=== PATIENT | male | born 1930 | race Caucasian/White ===

== ENCOUNTER → 2016-04-30 | Outpatient (CLI) | payer MEDICARE, OTHER ==
[~2016-04-30] VITALS: Ht 172.7 cm; Wt 78.0 kg
[~2016-04-30] MED LIST: LATA0.00 EACHEYE
[2016-04-30 10:00] VITALS: BP 170/89
[2016-04-30 10:30] VITALS: BP 160/88
[2016-04-30 13:01] LABS: INR 1.04 (0.9-1.15); Prothrombin Time 10.7 sec (9.37-12.3)
[2016-04-30 13:09] LABS: BUN/Creatinine Ratio 19.2; Calcium 8.9 mg/dL (8.5-10.1); Potassium 4.2 mmol/L (3.5-5.1)
[2016-04-30 13:25] LABS: Basophils # (auto) 0 uL; Basophils % (auto) 0.5 % (0.0-2.0); Eosinophils # (auto) 0 uL; Eosinophils % (auto) 0.9 % (0.0-7.0); Hematocrit 43.2 % (41.0-53.0); Hemoglobin 14.2 g/dL (13.5-17.5); Lymphocytes # (auto) 0.9 uL; Lymphocytes % (auto) 21.4 % (10.0-50.0); Mean Corpuscular Hgb Conc. 32.9 g/dL (32.0-36.0); Mean Corpuscular Volume 91.1 fL (80.0-100.0); Mean Platelet Volume 8.5 fL (7.4-10.4); Monocytes # (auto) 0.7 uL; Monocytes % (auto) 16.7 % (0.0-12.0); Neutrophils # (auto) 2.7 uL; Neutrophils % (auto) 60.5 % (37.0-80.0); Platelet Count (auto) 221 10^3/uL (140-450); Red Cell Distribution Width 12.8 % (11.6-16.0); White Blood Cell 4.4 10^3/uL (4.4-10.8)
== END | disposition home or self-care (01) ==
LOC: Rad HDHVI 09:59
PROVIDERS: ATTEND Internal Medicine Cardiovascular Disease
DX: I10 Essential (primary) hypertension (principal); R79.1 Abnormal coagulation profile; D64.9 Anemia, unspecified
CPT/HCPCS: 36415; 71020; 80048; 85025; 85610; 85730; 93005; G0463

== ENCOUNTER → 2016-05-01 | Day surgery (SDC) | payer MEDICARE, OTHER ==
[~2016-05-01] VITALS: Ht 1 cm; Wt 0.5 kg
[~2016-05-01] MED LIST changes: +FLUMAZENIL 0.1 MG/ML INJ 10ML MDV IV ONE; +MIDAZOLAM HCL 1MG/1ML-2 ML VIAL IV ONE; +MIDAZOLAM HCL 1MG/1ML-2 ML VIAL ONE; +NALOXONE HCL 0.4 MG/ML VIAL IV ONE; +NALOXONE HCL 0.4 MG/ML VIAL ONE; +fentaNYL CITRATE 100 MCG/2 ML VL IV ONE; +fentaNYL CITRATE 100 MCG/2 ML VL ONE
== END | disposition home or self-care (01) ==
LOC: CATH 10:53
PROVIDERS: ATTEND Internal Medicine Cardiovascular Disease
DX: I35.1 Nonrheumatic aortic (valve) insufficiency (principal); I10 Essential (primary) hypertension; E78.5 Hyperlipidemia, unspecified; I71.9 Aortic aneurysm of unspecified site, without rupture
CPT/HCPCS: 93312; J2250

== ENCOUNTER → 2016-09-08 | Outpatient (CLI) | payer MEDICARE, OTHER ==
[~2016-09-08] MED LIST changes: -FLUMAZENIL 0.1 MG/ML INJ 10ML MDV IV ONE; -MIDAZOLAM HCL 1MG/1ML-2 ML VIAL IV ONE; -MIDAZOLAM HCL 1MG/1ML-2 ML VIAL ONE; -NALOXONE HCL 0.4 MG/ML VIAL IV ONE; -NALOXONE HCL 0.4 MG/ML VIAL ONE; -fentaNYL CITRATE 100 MCG/2 ML VL IV ONE; -fentaNYL CITRATE 100 MCG/2 ML VL ONE
== END | disposition home or self-care (01) ==
LOC: Rad HDHVI 14:04
PROVIDERS: ATTEND Internal Medicine Cardiovascular Disease
DX: G45.9 Transient cerebral ischemic attack, unspecified (principal)
CPT/HCPCS: 70450

== ENCOUNTER → 2017-07-14 | Outpatient (CLI) | payer MEDICARE, OTHER ==
[~2017-07-14] VITALS: Ht 172.7 cm; Wt 74.8 kg
[~2017-07-14] MED LIST changes: -LATA0.00 EACHEYE; +LATA0.0020 EACHEYE
[2017-07-14 12:09] LABS: Basophils # (auto) 0 uL; Basophils % (auto) 0.5 % (0.0-2.0); Eosinophils # (auto) 0.1 uL; Eosinophils % (auto) 1.4 % (0.0-7.0); Hematocrit 41.7 % (41.0-53.0); Hemoglobin 14.2 g/dL (13.5-17.5); Lymphocytes % (auto) 20.1 % (10.0-50.0); Mean Corpuscular Hemoglobin 30.4 pg (28.0-32.0); Mean Corpuscular Volume 89.3 fL (80.0-100.0); Monocytes # (auto) 0.7 uL; Monocytes % (auto) 15.2 % (0.0-12.0); Neutrophils % (auto) 62.8 % (37.0-80.0); Nucleated Red Blood Cells % 0.1 %; Platelet Count (auto) 188 10^3/uL (140-450); Red Blood Cells 4.67 10^6/uL (4.5-5.90); Red Cell Distribution Width 13.3 % (11.8-14.3); Urine Blood TRACE /uL (Negative); Urine Specific Gravity 1.019 (1.001-1.035); White Blood Cell 4.8 10^3/uL (4.4-10.8)
[2017-07-14 12:47] LABS: Free T4 (Free Thyroxine) 1.36 ng/dL (0.89-1.76); Prostate Specific Antigen 0.21 ng/mL (0.0-4.0)
[2017-07-14 12:53] LABS: Albumin 4.1 g/dL (3.4-5.0); Bilirubin, Total 0.6 mg/dL (0.2-1.0); Calcium 9.1 mg/dL (8.5-10.1)
== END | disposition home or self-care (01) ==
LOC: Rad HDHVI 09:48
PROVIDERS: ATTEND Internal Medicine Cardiovascular Disease
DX: E78.5 Hyperlipidemia, unspecified (principal); D64.9 Anemia, unspecified; I10 Essential (primary) hypertension; E11.9 Type 2 diabetes mellitus without complications; E55.9 Vitamin D deficiency, unspecified; E03.8 Other specified hypothyroidism; R53.81 Other malaise; R97.20 Elevated prostate specific antigen [PSA]; D51.9 Vitamin B12 deficiency anemia, unspecified; N39.0 Urinary tract infection, site not specified
CPT/HCPCS: 36415; 78452; 80053; 80061; 81003; 82306; 82607; 83036; 84153; 84403; 84439; 84443; 85025; 93017; 96374; A9500

== ENCOUNTER → 2017-07-30 | Outpatient (CLI) | payer MEDICARE, OTHER ==
[~2017-07-30] MED LIST changes: +IOHEXOL 350 MG/ML 100ML IJ ONE
[2017-07-30 09:35] VITALS: BP 169/82
[2017-07-30 10:20] VITALS: BP 175/78
== END | disposition home or self-care (01) ==
LOC: Rad HDHVI 09:27
PROVIDERS: ATTEND Internal Medicine Cardiovascular Disease
DX: K57.30 Diverticulosis of large intestine without perforation or abscess without bleeding (principal); K44.9 Diaphragmatic hernia without obstruction or gangrene; I70.0 Atherosclerosis of aorta
CPT/HCPCS: 74177; G0463; Q9967

== ENCOUNTER → 2019-04-25 | Outpatient (CLI) | payer MEDICARE, OTHER ==
[~2019-04-25] MED LIST changes: -IOHEXOL 350 MG/ML 100ML IJ ONE
[2019-04-25 12:16] LABS: Hemoglobin 14.6 g/dL (13.5-17.5); Mean Corpuscular Hemoglobin 31.5 pg (28.0-32.0); Mean Corpuscular Volume 92.6 fL (80.0-100.0); Platelet Count (auto) 206 10^3/uL (140-450); Red Blood Cells 4.64 10^6/uL (4.5-5.90); Red Cell Distribution Width 13.2 % (11.8-14.3); White Blood Cell 5.2 10^3/uL (4.4-10.8)
[2019-04-25 12:18] LABS: Urine Blood Negative /uL (Negative); Urine Specific Gravity 1.018 (1.001-1.035)
[2019-04-25 12:32] LABS: Albumin 4.5 g/dL (3.4-5.0); Potassium 3.8 mmol/L (3.5-5.1)
[2019-04-25 12:34] LABS: Band Neutrophils % (manual) 0; Basophils % (manual) 0 (0.0-2.0); Blast Cells 0; Eosinophils % (manual) 0 (0-7); Metamyelocytes % 0; Myelocytes % 0; Promyelocytes % 0; Reactive Lymphocytes 0
[2019-04-25 12:40] LABS: Bilirubin, Total 1.1 mg/dL (0.2-1.0); Calcium 9.4 mg/dL (8.5-10.1); Total Protein 8.6 g/dL (6.4-8.2)
[2019-04-25 13:12] LABS: Lymphocytes % (manual) 35 (10.0-50.0); Monocytes % (manual) 3 (0-12)
[2019-04-25 13:50] LABS: Free T4 (Free Thyroxine) 1.14 ng/dL (0.89-1.76)
[2019-04-25 13:51] LABS: Prostate Specific Antigen 0.28 ng/mL (0.0-4.0)
== END | disposition home or self-care (01) ==
LOC: LAB 09:01
PROVIDERS: ATTEND Internal Medicine Cardiovascular Disease
DX: C61 Malignant neoplasm of prostate (principal); E03.9 Hypothyroidism, unspecified; K90.9 Intestinal malabsorption, unspecified; E29.1 Testicular hypofunction; N39.0 Urinary tract infection, site not specified; D51.9 Vitamin B12 deficiency anemia, unspecified; Z79.899 Other long term (current) drug therapy
CPT/HCPCS: 36415; 80053; 80061; 81003; 82306; 82607; 83036; 84153; 84403; 84439; 84443; 85007; 85027

== ENCOUNTER 2020-08-18 10:38 | Inpatient (IN) | payer MEDICARE, OTHER ==
[~2020-08-18] VITALS: Ht 172.7 cm; Wt 74.0 kg
[2020-08-18] MEDS ORDERED: dilTIAZem 25 MG/5 ML VIAL IV ONE (11:00)
[2020-08-18] MEDS ORDERED: SODIUM CHLORIDE 0.9% 500 ML IV ONE ×2 (11:45→18:30)
[2020-08-18 11:46] LABS: Basophils # (auto) 0.2 10 ^3/uL (0-0.2); Basophils % (auto) 1.4 % (0.0-2.0); Eosinophils # (auto) 0 10 ^3/uL (0-0.8); Hematocrit 46.4 % (41.0-53.0); Hemoglobin 15.4 g/dL (13.5-17.5); Lymphocytes # (auto) 0.3 10 ^3/uL (0.4-5.4); Lymphocytes % (auto) 2.3 % (10.0-50.0); Mean Corpuscular Hemoglobin 30.2 pg (28.0-32.0); Mean Corpuscular Hgb Conc. 33.3 g/dL (32.0-36.0); Mean Corpuscular Volume 90.6 fL (80.0-100.0); Monocytes # (auto) 1.8 10 ^3/uL (0-1.3); Monocytes % (auto) 12.4 % (0.0-12.0); Neutrophils % (auto) 83.9 % (37.0-80.0); Red Blood Cells 5.12 10^6/uL (4.5-5.90); Red Cell Distribution Width 13.5 % (11.8-14.3); White Blood Cell 14.3 10^3/uL (4.4-10.8)
[2020-08-18 11:56] LABS: Albumin 3.1 g/dL (3.4-5.0); Calcium 8.9 mg/dL (8.5-10.1); Potassium 4.5 mmol/L (3.5-5.1)
[2020-08-18 12:00] LABS: INR 1.15 (0.9-1.15)
[2020-08-18 12:22] LABS: BUN/Creatinine Ratio 38.6; Bilirubin, Total 1.5 mg/dL (0.2-1.0); Total Protein 7.6 g/dL (6.4-8.2)
[2020-08-18 13:28] LABS: Lactic Acid w/Reflex 3.8 mmol/L (0.4-2.0)
[2020-08-18 16:04] LABS: Lactic Acid w/Reflex 3.1 mmol/L (0.4-2.0)
[2020-08-18] MEDS ORDERED: LATA0.0019 EACHEYE (16:12)
[2020-08-18] MEDS ORDERED: TIMO0.5S32 EACHEYE (16:12)
[2020-08-18] MEDS: cefTRIAXone 1GM/50ML D5W 50 ML IV SCH ×2 (18:33→18:34)
[2020-08-18 20:12] LABS: Urine Bacteria FEW /hpf (None Seen); Urine Blood 3+ /uL (Negative); Urine Hyaline Cast MANY /lpf (0 - 2); Urine Mucus FEW (None Seen); Urine Specific Gravity 1.025 (1.001-1.035); Urine WBC 9 /hpf (0 - 3)
[2020-08-18 22:00] VITALS: BP 135/69
[2020-08-18] MEDS: TIMOLOL MAL 0.5% OPTH(EYE) SOL 5ML EACHEYE SCH (22:00)
[2020-08-19 05:16] VITALS: BP 131/63
[2020-08-19 08:14] LABS: Basophils # (auto) 0 10 ^3/uL (0-0.2); Basophils % (auto) 0.1 % (0.0-2.0); Eosinophils # (auto) 0 10 ^3/uL (0-0.8); Hematocrit 39.9 % (41.0-53.0); Hemoglobin 13.3 g/dL (13.5-17.5); Mean Corpuscular Hemoglobin 29.8 pg (28.0-32.0); Mean Corpuscular Hgb Conc. 33.5 g/dL (32.0-36.0); Mean Corpuscular Volume 89.1 fL (80.0-100.0); Neutrophils # (auto) 15.9 10 ^3/uL (1.6-8.6); Neutrophils % (auto) 76.7 % (37.0-80.0); Red Blood Cells 4.47 10^6/uL (4.5-5.90); Red Cell Distribution Width 13.7 % (11.8-14.3); White Blood Cell 20.8 10^3/uL (4.4-10.8)
[2020-08-19 08:19] LABS: Lymphocytes % (auto) 6.7 % (10.0-50.0)
[2020-08-19 08:20] LABS: Albumin 2.6 g/dL (3.4-5.0); Calcium 8.4 mg/dL (8.5-10.1); Lymphocytes # (auto) 1.1 10 ^3/uL (0.4-5.4); Magnesium 2.9 mg/dL (1.6-2.6); Monocytes # (auto) 3.7 10 ^3/uL (0-1.3); Monocytes % (auto) 16.5 % (0.0-12.0); Potassium 4.1 mmol/L (3.5-5.1)
[2020-08-19 08:24] LABS: BUN/Creatinine Ratio 52.1; Bilirubin, Total 0.9 mg/dL (0.2-1.0); Total Protein 6.7 g/dL (6.4-8.2)
[2020-08-19 08:27] VITALS: BP 120/72
[2020-08-19] MEDS: cefTRIAXone 1GM/50ML D5W 50 ML IV SCH (10:32)
[2020-08-19] MEDS: TIMOLOL MAL 0.5% OPTH(EYE) SOL 5ML EACHEYE SCH ×2 (12:37→21:33)
[2020-08-19 12:55] VITALS: BP 121/65
[2020-08-19] MEDS: FOLIC ACID 1 MG, MULTIPLE VITAMIN 10 ML, THIAMINE INJ 100 MG in SODIUM CHLORIDE 0.9% 1,... INJ SCH (13:16)
[2020-08-19] MEDS: KETOROLAC TROMETH 30 MG/ML 1ML VIAL IV PRN ×2 (13:17→21:33)
[2020-08-19 17:02] VITALS: BP 110/59
[2020-08-19 22:00] VITALS: BP 108/60
[2020-08-20 05:00] VITALS: BP 108/60
[2020-08-20] MEDS: cefTRIAXone 1GM/50ML D5W 50 ML IV SCH (08:25)
[2020-08-20] MEDS: KETOROLAC TROMETH 30 MG/ML 1ML VIAL IV PRN ×2 (08:38→18:00)
[2020-08-20 09:00] VITALS: BP 111/59
[2020-08-20] MEDS: TIMOLOL MAL 0.5% OPTH(EYE) SOL 5ML EACHEYE SCH ×2 (09:40→22:12)
[2020-08-20 13:00] VITALS: BP 109/59
[2020-08-20] MEDS: FOLIC ACID 1 MG, MULTIPLE VITAMIN 10 ML, THIAMINE INJ 100 MG in SODIUM CHLORIDE 0.9% 1,... INJ SCH (15:41)
[2020-08-20] MEDS ORDERED: METOCLOPRAMIDE HCL 5MG/ml INJ 2ml VIAL IV PRN (16:15)
[2020-08-20 17:00] VITALS: BP 111/56
[2020-08-20] MEDS: PIPERACILLIN-TAZOB 3.375GM 100 ML IV SCH (17:46)
[2020-08-20 22:00] VITALS: BP 124/62
[2020-08-21] MEDS: PIPERACILLIN-TAZOB 3.375GM 100 ML IV SCH ×4 (00:33→18:34)
[2020-08-21] MEDS: KETOROLAC TROMETH 30 MG/ML 1ML VIAL IV PRN ×2 (00:41→18:34)
[2020-08-21 05:00] VITALS: BP 124/63
[2020-08-21 09:00] VITALS: BP 119/60
[2020-08-21] MEDS: TIMOLOL MAL 0.5% OPTH(EYE) SOL 5ML EACHEYE SCH ×2 (12:42→21:58)
[2020-08-21] MEDS: FOLIC ACID 1 MG, MULTIPLE VITAMIN 10 ML, THIAMINE INJ 100 MG in SODIUM CHLORIDE 0.9% 1,... INJ SCH (12:42)
[2020-08-21 13:00] VITALS: BP 137/67
[2020-08-21 16:26] LABS: Hematocrit 31.2 % (41.0-53.0); Hemoglobin 10.8 g/dL (13.5-17.5); Mean Corpuscular Hemoglobin 30.3 pg (28.0-32.0); Mean Corpuscular Hgb Conc. 34.6 g/dL (32.0-36.0); Mean Corpuscular Volume 87.6 fL (80.0-100.0); Red Blood Cells 3.56 10^6/uL (4.5-5.90); Red Cell Distribution Width 13.5 % (11.8-14.3); White Blood Cell 12.5 10^3/uL (4.4-10.8)
[2020-08-21 16:31] LABS: Basophils % (manual) 0 (0.0-2.0); Blast Cells 0; Eosinophils % (manual) 0 (0-7); Metamyelocytes % 0; Myelocytes % 0; Promyelocytes % 0; Reactive Lymphocytes 0
[2020-08-21 16:45] LABS: Albumin 1.8 g/dL (3.4-5.0); Calcium 7.8 mg/dL (8.5-10.1); Potassium 4.4 mmol/L (3.5-5.1)
[2020-08-21 16:48] LABS: BUN/Creatinine Ratio 35.6; Bilirubin, Total 0.5 mg/dL (0.2-1.0); Total Protein 5.8 g/dL (6.4-8.2)
[2020-08-21 17:00] VITALS: BP 136/63
[2020-08-21 17:13] LABS: Band Neutrophils % (manual) 5; Lymphocytes % (manual) 5 (10.0-50.0); Monocytes % (manual) 14 (0-12)
[2020-08-22] MEDS: PIPERACILLIN-TAZOB 3.375GM 100 ML IV SCH ×4 (00:43→19:57)
[2020-08-22] MEDS: KETOROLAC TROMETH 30 MG/ML 1ML VIAL IV PRN ×3 (00:44→21:16)
[2020-08-22 05:00] VITALS: BP 156/74
[2020-08-22 09:00] VITALS: BP 139/60
[2020-08-22] MEDS: FOLIC ACID 1 MG, MULTIPLE VITAMIN 10 ML, THIAMINE INJ 100 MG in SODIUM CHLORIDE 0.9% 1,... INJ SCH (12:31)
[2020-08-22] MEDS: TIMOLOL MAL 0.5% OPTH(EYE) SOL 5ML EACHEYE SCH ×2 (12:32→21:17)
[2020-08-22 13:00] VITALS: BP 130/68
[2020-08-22 17:00] VITALS: BP 145/69
[2020-08-22 22:00] VITALS: BP 129/73
[2020-08-23] MEDS: PIPERACILLIN-TAZOB 3.375GM 100 ML IV SCH ×4 (05:45→18:35)
[2020-08-23 05:51] VITALS: BP 141/66
[2020-08-23 09:00] VITALS: BP 158/77
[2020-08-23] MEDS: KETOROLAC TROMETH 30 MG/ML 1ML VIAL IV PRN (10:46)
[2020-08-23] MEDS: TIMOLOL MAL 0.5% OPTH(EYE) SOL 5ML EACHEYE SCH ×2 (10:46→22:42)
[2020-08-23] MEDS: FOLIC ACID 1 MG, MULTIPLE VITAMIN 10 ML, THIAMINE INJ 100 MG in SODIUM CHLORIDE 0.9% 1,... INJ SCH (12:12)
[2020-08-23 13:00] VITALS: BP 118/66
[2020-08-23 14:05] LABS: Hematocrit 30.6 % (41.0-53.0); White Blood Cell 11.4 10^3/uL (4.4-10.8)
[2020-08-23 14:12] LABS: Hemoglobin 10.6 g/dL (13.5-17.5); Mean Corpuscular Hemoglobin 30.3 pg (28.0-32.0); Mean Corpuscular Hgb Conc. 34.6 g/dL (32.0-36.0); Mean Corpuscular Volume 87.6 fL (80.0-100.0); Red Cell Distribution Width 13.8 % (11.8-14.3)
[2020-08-23 14:15] LABS: Basophils % (manual) 0 (0.0-2.0); Blast Cells 0; Promyelocytes % 0; Reactive Lymphocytes 0
[2020-08-23 14:21] LABS: BUN/Creatinine Ratio 23.9; Potassium 4.4 mmol/L (3.5-5.1)
[2020-08-23 14:28] LABS: Band Neutrophils % (manual) 5; Eosinophils % (manual) 2 (0-7); Lymphocytes % (manual) 15 (10.0-50.0); Metamyelocytes % 1; Monocytes % (manual) 6 (0-12); Myelocytes % 3
[2020-08-23 17:00] VITALS: BP 139/72
[2020-08-23 22:00] VITALS: BP 158/74
[2020-08-23] MEDS: HYDROcodone-ACET 10/325MG TAB PO PRN (22:42)
[2020-08-24 00:12] VITALS: BP 135/64
[2020-08-24] MEDS: PIPERACILLIN-TAZOB 3.375GM 100 ML IV SCH ×4 (00:20→17:41)
[2020-08-24 05:00] VITALS: BP 142/68
[2020-08-24 09:00] VITALS: BP 134/60
[2020-08-24] MEDS: TIMOLOL MAL 0.5% OPTH(EYE) SOL 5ML EACHEYE SCH ×2 (09:09→22:20)
[2020-08-24] MEDS: CLOPIDOGREL BISULFATE 75 MG TAB PO SCH (09:10)
[2020-08-24] MEDS: BENAZEPRIL HCL 10 MG TAB PO SCH (09:10)
[2020-08-24 13:00] VITALS: BP 116/54
[2020-08-24 17:00] VITALS: BP 120/54
[2020-08-24] MEDS: HYDROcodone-ACET 10/325MG TAB PO PRN (20:54)
[2020-08-24 22:00] VITALS: BP 109/50
[2020-08-25] MEDS: PIPERACILLIN-TAZOB 3.375GM 100 ML IV SCH ×4 (00:39→17:40)
[2020-08-25 05:00] VITALS: BP 119/58
[2020-08-25] MEDS: TIMOLOL MAL 0.5% OPTH(EYE) SOL 5ML EACHEYE SCH ×2 (08:44→21:29)
[2020-08-25] MEDS: CLOPIDOGREL BISULFATE 75 MG TAB PO SCH (08:45)
[2020-08-25] MEDS: BENAZEPRIL HCL 10 MG TAB PO SCH (08:45)
[2020-08-25] MEDS: HYDROcodone-ACET 10/325MG TAB PO PRN (08:52)
[2020-08-25 09:00] VITALS: BP 127/67
[2020-08-25 13:00] VITALS: BP 114/54
[2020-08-25 17:00] VITALS: BP 110/54
[2020-08-25] MEDS ORDERED: LORazepam 2MG/ML-1ML VIAL IV PRN (21:45)
[2020-08-25 22:00] VITALS: BP 121/58
[2020-08-26] MEDS: PIPERACILLIN-TAZOB 3.375GM 100 ML IV SCH ×4 (00:33→18:07)
[2020-08-26] MEDS: HYDROcodone-ACET 10/325MG TAB PO PRN ×3 (00:34→22:00)
[2020-08-26 05:00] VITALS: BP 117/57
[2020-08-26 08:00] VITALS: BP 123/56
[2020-08-26 08:34] VITALS: BP 123/56
[2020-08-26] MEDS: BENAZEPRIL HCL 10 MG TAB PO SCH ×2 (10:00→10:45)
[2020-08-26] MEDS: TIMOLOL MAL 0.5% OPTH(EYE) SOL 5ML EACHEYE SCH ×2 (10:45→21:59)
[2020-08-26] MEDS: CLOPIDOGREL BISULFATE 75 MG TAB PO SCH (10:47)
[2020-08-26 12:39] VITALS: BP 109/64
[2020-08-26 16:47] VITALS: BP 122/67
[2020-08-26 22:00] VITALS: BP 129/62
[2020-08-27] MEDS: PIPERACILLIN-TAZOB 3.375GM 100 ML IV SCH ×4 (00:04→17:06)
[2020-08-27 05:00] VITALS: BP 128/62
[2020-08-27 08:00] VITALS: BP 109/52
[2020-08-27 09:00] VITALS: BP 128/63
[2020-08-27 09:18] LABS: Folate (Folic Acid) 10.5 ng/mL (5.38-24)
[2020-08-27] MEDS: TIMOLOL MAL 0.5% OPTH(EYE) SOL 5ML EACHEYE SCH ×2 (10:11→22:24)
[2020-08-27] MEDS: BENAZEPRIL HCL 10 MG TAB PO SCH (10:11)
[2020-08-27] MEDS: CLOPIDOGREL BISULFATE 75 MG TAB PO SCH (10:11)
[2020-08-27] MEDS: HYDROcodone-ACET 10/325MG TAB PO PRN ×2 (10:12→22:24)
[2020-08-27 13:00] VITALS: BP 109/52
[2020-08-27 17:00] VITALS: BP 109/53
[2020-08-27 22:00] VITALS: BP 132/67
[2020-08-28] MEDS: PIPERACILLIN-TAZOB 3.375GM 100 ML IV SCH ×4 (00:50→17:19)
[2020-08-28 05:00] VITALS: BP 136/68
[2020-08-28 05:40] LABS: Basophils # (auto) 0.1 10 ^3/uL (0-0.2); Basophils % (auto) 0.8 % (0.0-2.0); Eosinophils # (auto) 0.1 10 ^3/uL (0-0.8); Hematocrit 28.2 % (41.0-53.0); Hemoglobin 9.6 g/dL (13.5-17.5); Lymphocytes # (auto) 1.2 10 ^3/uL (0.4-5.4); Mean Corpuscular Hgb Conc. 34.2 g/dL (32.0-36.0); Mean Corpuscular Volume 87.6 fL (80.0-100.0); Monocytes # (auto) 1.6 10 ^3/uL (0-1.3); Monocytes % (auto) 14.9 % (0.0-12.0); Neutrophils # (auto) 7.7 10 ^3/uL (1.6-8.6); Neutrophils % (auto) 72.3 % (37.0-80.0); Red Blood Cells 3.22 10^6/uL (4.5-5.90); White Blood Cell 10.7 10^3/uL (4.4-10.8)
[2020-08-28 05:47] LABS: INR 1.11 (0.9-1.15); Partial Thromboplastin Time 26.8 sec (23.0-31.2)
[2020-08-28 05:50] LABS: Calcium 8.3 mg/dL (8.5-10.1); Potassium 4.1 mmol/L (3.5-5.1)
[2020-08-28 05:52] LABS: BUN/Creatinine Ratio 30.3
[2020-08-28 09:00] VITALS: BP 124/59
[2020-08-28] MEDS: CLOPIDOGREL BISULFATE 75 MG TAB PO SCH (10:54)
[2020-08-28] MEDS: BENAZEPRIL HCL 10 MG TAB PO SCH (10:55)
[2020-08-28] MEDS: TIMOLOL MAL 0.5% OPTH(EYE) SOL 5ML EACHEYE SCH ×2 (10:56→21:21)
[2020-08-28] MEDS: HYDROcodone-ACET 10/325MG TAB PO PRN (11:05)
[2020-08-28] MEDS ORDERED: LIDOCAINE 2%HCL (LOCAL ANESTH.) INJ 20ML MDV ONE (12:34)
[2020-08-28] MEDS ORDERED: IOHEXOL 350 MG/ML 100ML IJ ONE (12:34)
[2020-08-28] MEDS ORDERED: SODIUM CHL 0.9% 0 ML ONE (12:50)
[2020-08-28] MEDS ORDERED: MIDAZOLAM HCL 2MG/2ML 2ml VIAL (1mg/ml) ONE (12:50)
[2020-08-28] MEDS ORDERED: fentaNYL CITRATE 100 MCG/2 ML VL ONE (12:50)
[2020-08-28] MEDS ORDERED: ANGIOMAX 250 MG VIAL IV ONE (12:50)
[2020-08-28 13:00] VITALS: BP 105/50
[2020-08-28 17:00] VITALS: BP 115/51
[2020-08-28 21:56] VITALS: BP 116/57
[2020-08-29] MEDS: PIPERACILLIN-TAZOB 3.375GM 100 ML IV SCH ×4 (00:17→17:10)
[2020-08-29] MEDS: HYDROcodone-ACET 10/325MG TAB PO PRN ×2 (01:55→22:53)
[2020-08-29 06:07] VITALS: BP 132/61
[2020-08-29 09:00] VITALS: BP 129/58
[2020-08-29] MEDS: TIMOLOL MAL 0.5% OPTH(EYE) SOL 5ML EACHEYE SCH ×2 (10:23→22:00)
[2020-08-29] MEDS: BENAZEPRIL HCL 10 MG TAB PO SCH (10:24)
[2020-08-29] MEDS: CLOPIDOGREL BISULFATE 75 MG TAB PO SCH (10:24)
[2020-08-29 13:00] VITALS: BP 119/50
[2020-08-29 16:30] VITALS: BP 110/46
[2020-08-29 21:56] VITALS: BP 91/54
[2020-08-30 05:27] VITALS: BP 99/68
[2020-08-30] MEDS: PIPERACILLIN-TAZOB 3.375GM 100 ML IV SCH ×4 (06:00→17:51)
[2020-08-30 09:00] VITALS: BP 123/64
[2020-08-30] MEDS: BENAZEPRIL HCL 10 MG TAB PO SCH (10:00)
[2020-08-30] MEDS: CLOPIDOGREL BISULFATE 75 MG TAB PO SCH (10:06)
[2020-08-30] MEDS: TIMOLOL MAL 0.5% OPTH(EYE) SOL 5ML EACHEYE SCH ×2 (10:06→22:15)
[2020-08-30 13:00] VITALS: BP 118/61
[2020-08-30 17:00] VITALS: BP 117/50
[2020-08-30 22:00] VITALS: BP 121/57
[2020-08-31] MEDS: PIPERACILLIN-TAZOB 3.375GM 100 ML IV SCH ×4 (00:05→18:19)
[2020-08-31 05:00] VITALS: BP 118/58
[2020-08-31 09:00] VITALS: BP_SYST 108; BP_SYST 18; BP_DIAS 51
[2020-08-31] MEDS: BENAZEPRIL HCL 10 MG TAB PO SCH (09:55)
[2020-08-31] MEDS: CLOPIDOGREL BISULFATE 75 MG TAB PO SCH (09:55)
[2020-08-31] MEDS: TIMOLOL MAL 0.5% OPTH(EYE) SOL 5ML EACHEYE SCH ×2 (09:55→21:52)
[2020-08-31 13:00] VITALS: BP 113/52
[2020-08-31 17:00] VITALS: BP 108/56
[2020-08-31 21:37] VITALS: BP 105/48
[2020-09-01 05:00] VITALS: BP 110/54
[2020-09-01] MEDS: PIPERACILLIN-TAZOB 3.375GM 100 ML IV SCH ×4 (05:38→17:53)
[2020-09-01 08:00] VITALS: BP 108/51
[2020-09-01 08:39] VITALS: BP 108/50
[2020-09-01] MEDS: CLOPIDOGREL BISULFATE 75 MG TAB PO SCH (09:37)
[2020-09-01] MEDS: TIMOLOL MAL 0.5% OPTH(EYE) SOL 5ML EACHEYE SCH ×2 (09:37→22:00)
[2020-09-01] MEDS: BENAZEPRIL HCL 10 MG TAB PO SCH (09:39)
[2020-09-01 12:48] VITALS: BP 105/48
[2020-09-01 16:18] LABS: Hematocrit 21.2 % (41.0-53.0); Hemoglobin 7.4 g/dL (13.5-17.5); Mean Corpuscular Hemoglobin 29.7 pg (28.0-32.0); Mean Corpuscular Hgb Conc. 34.7 g/dL (32.0-36.0)
[2020-09-01 16:19] LABS: Mean Corpuscular Volume 85.6 fL (80.0-100.0); Red Blood Cells 2.48 10^6/uL (4.5-5.90); Red Cell Distribution Width 14.2 % (11.8-14.3)
[2020-09-01 16:29] LABS: Band Neutrophils % (manual) 0; Basophils % (manual) 0 (0.0-2.0); Blast Cells 0; Metamyelocytes % 0; Myelocytes % 0; Promyelocytes % 0; Reactive Lymphocytes 0
[2020-09-01] MEDS ORDERED: EPOETIN ALFA-EPBX 10,000 UNIT/1ML VIAL SC ONE (16:30)
[2020-09-01 16:34] LABS: Albumin 2.2 g/dL (3.4-5.0); BUN/Creatinine Ratio 33.8; Calcium 7.9 mg/dL (8.5-10.1); Potassium 4.6 mmol/L (3.5-5.1)
[2020-09-01 16:37] LABS: Bilirubin, Total 0.4 mg/dL (0.2-1.0); Total Protein 6.6 g/dL (6.4-8.2)
[2020-09-01 17:05] VITALS: BP 105/50
[2020-09-01 17:42] LABS: Eosinophils % (manual) 1 (0-7); Lymphocytes % (manual) 11 (10.0-50.0); Monocytes % (manual) 13 (0-12)
[2020-09-01 22:00] VITALS: BP 92/47
[2020-09-02] VITALS (8 sets, daily range): BP systolic 101–112; BP diastolic 48–55
[2020-09-02] MEDS: PIPERACILLIN-TAZOB 3.375GM 100 ML IV SCH ×4 (00:05→17:16)
[2020-09-02 07:35] LABS: Basophils # (auto) 0.1 10 ^3/uL (0-0.2); Eosinophils # (auto) 0.1 10 ^3/uL (0-0.8); Monocytes # (auto) 1.5 10 ^3/uL (0-1.3); Neutrophils # (auto) 6.1 10 ^3/uL (1.6-8.6)
[2020-09-02 07:37] LABS: Basophils % (auto) 1.3 % (0.0-2.0); Eosinophils % (auto) 1.1 % (0.0-7.0); Hematocrit 20.7 % (41.0-53.0); Lymphocytes # (auto) 0.9 10 ^3/uL (0.4-5.4); Mean Corpuscular Hemoglobin 29.6 pg (28.0-32.0); Mean Corpuscular Volume 87.1 fL (80.0-100.0); Monocytes % (auto) 17.5 % (0.0-12.0); Neutrophils % (auto) 70.1 % (37.0-80.0); Red Blood Cells 2.38 10^6/uL (4.5-5.90); Red Cell Distribution Width 14.3 % (11.8-14.3); White Blood Cell 8.7 10^3/uL (4.4-10.8)
[2020-09-02] MEDS: CLOPIDOGREL BISULFATE 75 MG TAB PO SCH (09:19)
[2020-09-02] MEDS: TIMOLOL MAL 0.5% OPTH(EYE) SOL 5ML EACHEYE SCH ×2 (09:26→22:13)
[2020-09-02] MEDS: BENAZEPRIL HCL 10 MG TAB PO SCH (09:26)
[2020-09-02] MEDS: HYDROcodone-ACET 10/325MG TAB PO PRN (09:54)
[2020-09-02] MEDS ORDERED: PANTOPRAZOLE 40 MG TAB PO SCH (10:00)
[2020-09-02] MEDS: SUCRALFATE 1 GM/10 ML ORAL SUSP PO SCH ×2 (17:15→22:13)
[2020-09-02] MEDS: Ensure HIGH Protein Chocolate 8oz Bottle PO SCH (19:00)
[2020-09-02] MEDS: PANTOPRAZOLE 40 MG TAB PO SCH (22:13)
[2020-09-03] VITALS (14 sets, daily range): BP systolic 94–108; BP diastolic 46–81
[2020-09-03 05:48] LABS: Red Blood Cells 2.17 10^6/uL (4.5-5.90)
[2020-09-03 05:53] LABS: Hematocrit 19.1 % (41.0-53.0); Mean Corpuscular Hemoglobin 30.5 pg (28.0-32.0); Mean Corpuscular Hgb Conc. 34.7 g/dL (32.0-36.0); Mean Corpuscular Volume 87.8 fL (80.0-100.0); Red Cell Distribution Width 14.9 % (11.8-14.3)
[2020-09-03] MEDS: PIPERACILLIN-TAZOB 3.375GM 100 ML IV SCH ×4 (06:00→18:10)
[2020-09-03 06:18] LABS: Hemoglobin 6.6 g/dL (13.5-17.5)
[2020-09-03 06:20] LABS: Basophils % (manual) 0 (0.0-2.0); Blast Cells 0; Metamyelocytes % 0; Myelocytes % 0; Promyelocytes % 0; Reactive Lymphocytes 0
[2020-09-03] MEDS: SUCRALFATE 1 GM/10 ML ORAL SUSP PO SCH ×2 (07:00→12:46)
[2020-09-03 07:09] LABS: Band Neutrophils % (manual) 2; Eosinophils % (manual) 2 (0-7); Lymphocytes % (manual) 7 (10.0-50.0); Monocytes % (manual) 6 (0-12)
[2020-09-03] MEDS: Ensure HIGH Protein Chocolate 8oz Bottle PO SCH ×3 (08:39→18:10)
[2020-09-03] MEDS: BENAZEPRIL HCL 10 MG TAB PO SCH (09:06)
[2020-09-03] MEDS: PANTOPRAZOLE 40 MG TAB PO SCH ×2 (09:25→22:13)
[2020-09-03] MEDS: TIMOLOL MAL 0.5% OPTH(EYE) SOL 5ML EACHEYE SCH ×2 (09:25→22:13)
[2020-09-03 21:12] LABS: Hematocrit 21.4 % (41.0-53.0); Hemoglobin 7.6 g/dL (13.5-17.5)
[2020-09-04] MEDS: PIPERACILLIN-TAZOB 3.375GM 100 ML IV SCH ×4 (01:16→19:09)
[2020-09-04 05:00] VITALS: BP 102/52
[2020-09-04 06:45] LABS: Hematocrit 22.9 % (41.0-53.0); White Blood Cell 8.7 10^3/uL (4.4-10.8)
[2020-09-04 06:50] LABS: Mean Corpuscular Hemoglobin 31.2 pg (28.0-32.0); Red Blood Cells 2.58 10^6/uL (4.5-5.90); Red Cell Distribution Width 14.8 % (11.8-14.3)
[2020-09-04 06:59] LABS: Basophils % (manual) 0 (0.0-2.0); Blast Cells 0; Metamyelocytes % 0; Promyelocytes % 0; Reactive Lymphocytes 0
[2020-09-04 07:50] LABS: Band Neutrophils % (manual) 2; Eosinophils % (manual) 1 (0-7); Lymphocytes % (manual) 8 (10.0-50.0); Monocytes % (manual) 9 (0-12); Myelocytes % 1
[2020-09-04] MEDS: Ensure HIGH Protein Chocolate 8oz Bottle PO SCH ×3 (08:00→19:09)
[2020-09-04 08:56] VITALS: BP 125/53
[2020-09-04] MEDS: TIMOLOL MAL 0.5% OPTH(EYE) SOL 5ML EACHEYE SCH ×2 (09:37→21:43)
[2020-09-04] MEDS: PANTOPRAZOLE 40 MG TAB PO SCH ×2 (09:37→21:42)
[2020-09-04] MEDS: BENAZEPRIL HCL 10 MG TAB PO SCH (09:37)
[2020-09-04 13:00] VITALS: BP 105/52
[2020-09-04 17:00] VITALS: BP 109/53
[2020-09-04] MEDS ORDERED: EPOETIN ALFA-EPBX 10,000 UNIT/1ML VIAL SC ONE (21:00)
[2020-09-04 21:56] VITALS: BP 122/56
[2020-09-05] MEDS: PIPERACILLIN-TAZOB 3.375GM 100 ML IV SCH ×4 (00:07→20:14)
[2020-09-05 06:35] VITALS: BP 147/65
[2020-09-05 07:32] LABS: Hemoglobin 8.3 g/dL (13.5-17.5); Mean Corpuscular Volume 90.5 fL (80.0-100.0); Red Cell Distribution Width 15.6 % (11.8-14.3)
[2020-09-05 07:34] LABS: Hematocrit 23.8 % (41.0-53.0); Mean Corpuscular Hemoglobin 31.4 pg (28.0-32.0); Mean Corpuscular Hgb Conc. 34.7 g/dL (32.0-36.0); Red Blood Cells 2.63 10^6/uL (4.5-5.90); White Blood Cell 8.1 10^3/uL (4.4-10.8)
[2020-09-05 07:36] LABS: Basophils % (manual) 0 (0.0-2.0); Blast Cells 0; Promyelocytes % 0; Reactive Lymphocytes 0
[2020-09-05 07:53] LABS: BUN/Creatinine Ratio 23.1; Calcium 8.3 mg/dL (8.5-10.1); Potassium 4.1 mmol/L (3.5-5.1)
[2020-09-05] MEDS: Ensure HIGH Protein Chocolate 8oz Bottle PO SCH ×3 (08:00→17:16)
[2020-09-05 08:30] VITALS: BP 129/55
[2020-09-05 08:32] LABS: Band Neutrophils % (manual) 11; Eosinophils % (manual) 3 (0-7); Lymphocytes % (manual) 9 (10.0-50.0); Metamyelocytes % 4; Monocytes % (manual) 11 (0-12); Myelocytes % 1
[2020-09-05] MEDS ORDERED: diphenhdrAMINE HCL 50 MG/1 ML VL ONE (08:42)
[2020-09-05] MEDS ORDERED: SODIUM CHLORIDE LOCK 10 ML ONE (08:42)
[2020-09-05] MEDS ORDERED: fentaNYL CITRATE 100 MCG/2 ML VL ONE (08:42)
[2020-09-05] MEDS ORDERED: MIDAZOLAM HCL 5 MG/ML-1ML VIAL ONE (08:42)
[2020-09-05] MEDS ORDERED: LIDOCAINE VISCOUS 2% 15ML UD ONE (08:42)
[2020-09-05] MEDS: BENAZEPRIL HCL 10 MG TAB PO SCH (10:00)
[2020-09-05] MEDS: PANTOPRAZOLE 40 MG TAB PO SCH ×2 (11:16→21:32)
[2020-09-05] MEDS: TIMOLOL MAL 0.5% OPTH(EYE) SOL 5ML EACHEYE SCH ×2 (11:16→21:32)
[2020-09-05] MEDS: SUCRALFATE 1 GM/10 ML ORAL SUSP PO SCH ×3 (11:17→21:32)
[2020-09-05 12:30] VITALS: BP 130/61
[2020-09-05 16:50] VITALS: BP 129/99
[2020-09-05] MEDS: HYDROcodone-ACET 10/325MG TAB PO PRN (17:11)
[2020-09-05 22:00] VITALS: BP 137/60
[2020-09-06] MEDS: PIPERACILLIN-TAZOB 3.375GM 100 ML IV SCH ×4 (01:23→17:30)
[2020-09-06 05:00] VITALS: BP 122/62
[2020-09-06] MEDS: SUCRALFATE 1 GM/10 ML ORAL SUSP PO SCH ×4 (06:06→22:09)
[2020-09-06 08:30] VITALS: BP 123/72
[2020-09-06] MEDS: PANTOPRAZOLE 40 MG TAB PO SCH ×2 (09:45→22:09)
[2020-09-06] MEDS: BENAZEPRIL HCL 10 MG TAB PO SCH ×2 (09:46→10:00)
[2020-09-06] MEDS: Ensure HIGH Protein Chocolate 8oz Bottle PO SCH ×3 (09:46→17:28)
[2020-09-06] MEDS: TIMOLOL MAL 0.5% OPTH(EYE) SOL 5ML EACHEYE SCH ×2 (09:47→22:09)
[2020-09-06 12:30] VITALS: BP 116/44
[2020-09-06 17:00] VITALS: BP 123/57
[2020-09-06 22:00] VITALS: BP 119/57
[2020-09-06] MEDS: HYDROcodone-ACET 10/325MG TAB PO PRN (22:13)
[2020-09-07] MEDS: PIPERACILLIN-TAZOB 3.375GM 100 ML IV SCH ×4 (00:39→17:09)
[2020-09-07 02:52] LABS: Urine Bacteria FEW /hpf (None Seen); Urine Blood Negative /uL (Negative); Urine Mucus FEW (None Seen); Urine Specific Gravity 1.022 (1.001-1.035); Urine WBC 3 /hpf (0 - 3)
[2020-09-07 05:00] VITALS: BP 121/67
[2020-09-07] MEDS: SUCRALFATE 1 GM/10 ML ORAL SUSP PO SCH ×4 (06:09→22:12)
[2020-09-07 06:59] LABS: INR 1.09 (0.9-1.15); Partial Thromboplastin Time 27.4 sec (23.0-31.2)
[2020-09-07] MEDS: Ensure HIGH Protein Chocolate 8oz Bottle PO SCH ×3 (08:00→18:43)
[2020-09-07 09:00] VITALS: BP 119/65
[2020-09-07] MEDS: PANTOPRAZOLE 40 MG TAB PO SCH ×2 (09:54→22:12)
[2020-09-07] MEDS: BENAZEPRIL HCL 10 MG TAB PO SCH (09:54)
[2020-09-07] MEDS: TIMOLOL MAL 0.5% OPTH(EYE) SOL 5ML EACHEYE SCH ×2 (10:28→22:12)
[2020-09-07 13:00] VITALS: BP 108/66
[2020-09-07] MEDS ORDERED: ceFAZolin 1GM/50ML 100 ML IV ONE (13:13)
[2020-09-07] MEDS ORDERED: fentaNYL CITRATE 100 MCG/2 ML VL ONE (13:41)
[2020-09-07] MEDS ORDERED: MIDAZOLAM HCL 2MG/2ML 2ml VIAL (1mg/ml) ONE (13:42)
[2020-09-07] MEDS ORDERED: PROPOFOL 10 MG/ML 20 ML IV ONE (14:36)
[2020-09-07] MEDS ORDERED: HYDROmorphone HCL 2 MG/ML VL IV PRN (15:15)
[2020-09-07] MEDS ORDERED: ONDANSETRON HCL 4 MG/2 ML VIAL IV PRN (15:15)
[2020-09-07 16:46] VITALS: BP 120/63
[2020-09-07] MEDS: HYDROcodone-ACET 10/325MG TAB PO PRN (20:26)
[2020-09-07 22:00] VITALS: BP 135/63
[2020-09-08 05:00] VITALS: BP 138/68
[2020-09-08] MEDS: SUCRALFATE 1 GM/10 ML ORAL SUSP PO SCH ×4 (06:13→21:51)
[2020-09-08] MEDS: Ensure HIGH Protein Chocolate 8oz Bottle PO SCH ×3 (08:00→18:00)
[2020-09-08 08:30] VITALS: BP 134/65
[2020-09-08 08:40] LABS: Hematocrit 26.2 % (41.0-53.0); Mean Corpuscular Hemoglobin 31.1 pg (28.0-32.0); Mean Corpuscular Hgb Conc. 34.2 g/dL (32.0-36.0); Mean Corpuscular Volume 90.9 fL (80.0-100.0); Red Blood Cells 2.88 10^6/uL (4.5-5.90); White Blood Cell 6.7 10^3/uL (4.4-10.8)
[2020-09-08 08:43] LABS: Basophils % (manual) 0 (0.0-2.0); Blast Cells 0; Metamyelocytes % 0; Myelocytes % 0; Promyelocytes % 0; Reactive Lymphocytes 0
[2020-09-08 08:56] LABS: Albumin 2.4 g/dL (3.4-5.0); Calcium 8.5 mg/dL (8.5-10.1)
[2020-09-08 08:59] LABS: BUN/Creatinine Ratio 21.7; Bilirubin, Total 0.5 mg/dL (0.2-1.0)
[2020-09-08 09:25] LABS: Band Neutrophils % (manual) 2; Eosinophils % (manual) 1 (0-7); Lymphocytes % (manual) 7 (10.0-50.0); Monocytes % (manual) 15 (0-12)
[2020-09-08] MEDS: TIMOLOL MAL 0.5% OPTH(EYE) SOL 5ML EACHEYE SCH ×2 (09:35→21:54)
[2020-09-08] MEDS: PANTOPRAZOLE 40 MG TAB PO SCH ×2 (09:35→21:51)
[2020-09-08] MEDS: HYDROcodone-ACET 10/325MG TAB PO PRN (09:36)
[2020-09-08 12:30] VITALS: BP 115/63
[2020-09-08] MEDS ORDERED: LACTULOSE 20Gm/30ML SOLN PO PRN (14:45)
[2020-09-08 16:50] VITALS: BP 114/57
[2020-09-08 21:50] VITALS: BP 123/60
[2020-09-09] MEDS: HYDROcodone-ACET 10/325MG TAB PO PRN ×2 (01:35→22:01)
[2020-09-09 05:00] VITALS: BP 125/63
[2020-09-09] MEDS: SUCRALFATE 1 GM/10 ML ORAL SUSP PO SCH ×4 (06:15→22:00)
[2020-09-09] MEDS: Ensure HIGH Protein Chocolate 8oz Bottle PO SCH ×3 (08:00→17:55)
[2020-09-09 09:00] VITALS: BP 130/85
[2020-09-09] MEDS: PANTOPRAZOLE 40 MG TAB PO SCH ×2 (09:58→22:03)
[2020-09-09] MEDS: TIMOLOL MAL 0.5% OPTH(EYE) SOL 5ML EACHEYE SCH ×2 (09:58→22:04)
[2020-09-09 12:48] VITALS: BP 115/57
[2020-09-09 17:00] VITALS: BP 114/62
[2020-09-09 22:00] VITALS: BP 125/68
[2020-09-10 05:00] VITALS: BP 138/71
[2020-09-10] MEDS: SUCRALFATE 1 GM/10 ML ORAL SUSP PO SCH ×4 (06:15→21:49)
[2020-09-10 09:00] VITALS: BP 104/73
[2020-09-10] MEDS: Ensure HIGH Protein Chocolate 8oz Bottle PO SCH ×3 (09:20→18:13)
[2020-09-10] MEDS: PANTOPRAZOLE 40 MG TAB PO SCH ×2 (09:20→21:50)
[2020-09-10] MEDS: TIMOLOL MAL 0.5% OPTH(EYE) SOL 5ML EACHEYE SCH ×2 (09:21→21:49)
[2020-09-10 13:00] VITALS: BP 115/61
[2020-09-10] MEDS ORDERED: PATIENTS OWN MEDICATION (EPOGEN 10,000 UNITS) SUBCUT ONE (13:00)
[2020-09-10 13:36] LABS: Basophils # (auto) 0 10 ^3/uL (0-0.2); Basophils % (auto) 0.5 % (0.0-2.0); Eosinophils # (auto) 0.2 10 ^3/uL (0-0.8); Hematocrit 28.3 % (41.0-53.0); Hemoglobin 9.5 g/dL (13.5-17.5); Lymphocytes # (auto) 0.7 10 ^3/uL (0.4-5.4); Lymphocytes % (auto) 11.8 % (10.0-50.0); Mean Corpuscular Hemoglobin 30.3 pg (28.0-32.0); Mean Corpuscular Hgb Conc. 33.7 g/dL (32.0-36.0); Mean Corpuscular Volume 89.9 fL (80.0-100.0); Monocytes # (auto) 0.9 10 ^3/uL (0-1.3); Monocytes % (auto) 16.7 % (0.0-12.0); Neutrophils # (auto) 3.8 10 ^3/uL (1.6-8.6); Red Blood Cells 3.15 10^6/uL (4.5-5.90); Red Cell Distribution Width 16.9 % (11.8-14.3); White Blood Cell 5.7 10^3/uL (4.4-10.8)
[2020-09-10 13:55] LABS: Albumin 2.5 g/dL (3.4-5.0); Potassium 4.2 mmol/L (3.5-5.1)
[2020-09-10 13:57] LABS: BUN/Creatinine Ratio 27.9
[2020-09-10 13:59] LABS: Bilirubin, Total 0.4 mg/dL (0.2-1.0); Total Protein 7.2 g/dL (6.4-8.2)
[2020-09-10 21:00] VITALS: BP 126/72
[2020-09-10] MEDS ORDERED: EPOETIN ALFA-EPBX 10,000 UNIT/1ML VIAL SC ONE (21:00)
[2020-09-10] MEDS: HYDROcodone-ACET 10/325MG TAB PO PRN (22:18)
[2020-09-11 06:04] VITALS: BP 142/67
[2020-09-11] MEDS: SUCRALFATE 1 GM/10 ML ORAL SUSP PO SCH ×4 (07:15→21:39)
[2020-09-11 09:00] VITALS: BP 150/69
[2020-09-11] MEDS: Ensure HIGH Protein Chocolate 8oz Bottle PO SCH ×3 (09:09→18:17)
[2020-09-11] MEDS: PANTOPRAZOLE 40 MG TAB PO SCH ×2 (09:23→21:39)
[2020-09-11] MEDS: TIMOLOL MAL 0.5% OPTH(EYE) SOL 5ML EACHEYE SCH ×2 (09:23→21:39)
[2020-09-11 13:00] VITALS: BP 119/60
[2020-09-11] MEDS: SODIUM FERR GLUC 62.5MG/5ML 125 MG in SODIUM CHL 0.9% 100 ML IV SCH (14:09)
[2020-09-11 17:00] VITALS: BP 122/62
[2020-09-11] MEDS: HYDROcodone-ACET 10/325MG TAB PO PRN (21:40)
[2020-09-11 22:00] VITALS: BP 136/62
[2020-09-12 05:00] VITALS: BP 133/57
[2020-09-12] MEDS: SUCRALFATE 1 GM/10 ML ORAL SUSP PO SCH ×4 (07:08→21:45)
[2020-09-12 08:45] VITALS: BP 123/64
[2020-09-12] MEDS: Ensure HIGH Protein Chocolate 8oz Bottle PO SCH ×3 (10:09→17:25)
[2020-09-12] MEDS: TIMOLOL MAL 0.5% OPTH(EYE) SOL 5ML EACHEYE SCH ×2 (10:20→21:46)
[2020-09-12] MEDS: PANTOPRAZOLE 40 MG TAB PO SCH ×2 (10:21→21:45)
[2020-09-12] MEDS: SODIUM FERR GLUC 62.5MG/5ML 125 MG in SODIUM CHL 0.9% 100 ML IV SCH (12:27)
[2020-09-12 12:59] VITALS: BP 119/58
[2020-09-12 17:00] VITALS: BP 121/65
[2020-09-12 22:00] VITALS: BP 128/63
[2020-09-12] MEDS: HYDROcodone-ACET 10/325MG TAB PO PRN (22:08)
[2020-09-13 05:00] VITALS: BP 129/67
[2020-09-13] MEDS: SUCRALFATE 1 GM/10 ML ORAL SUSP PO SCH ×2 (06:26→12:18)
[2020-09-13 09:00] VITALS: BP 138/63
[2020-09-13] MEDS: PANTOPRAZOLE 40 MG TAB PO SCH (09:23)
[2020-09-13] MEDS: TIMOLOL MAL 0.5% OPTH(EYE) SOL 5ML EACHEYE SCH (09:23)
[2020-09-13] MEDS: Ensure HIGH Protein Chocolate 8oz Bottle PO SCH ×2 (09:24→14:59)
[2020-09-13] MEDS: SODIUM FERR GLUC 62.5MG/5ML 125 MG in SODIUM CHL 0.9% 100 ML IV SCH (12:00)
[2020-09-13 13:00] VITALS: BP 114/64
[2020-09-13 16:36] VITALS: BP 119/65
== END 2020-09-13 18:18 | DRG 356 ==
LOC: ER 10:38 → EDBD 10:38 → OVERFLOW 18:23 → EAST 21:51 → TELE-EAST 08-19 03:18
PROVIDERS: ADMIT Internal Medicine Cardiovascular Disease; ATTEND Internal Medicine Cardiovascular Disease
PROC: 4A023N7 Measurement of Cardiac Sampling and Pressure, Left Heart, Percutaneous Approach (ICD-10-PCS; 2020-08-28)
PROC: B2111ZZ Fluoroscopy of Multiple Coronary Arteries using Low Osmolar Contrast (ICD-10-PCS; 2020-08-28)
PROC: B2151ZZ Fluoroscopy of Left Heart using Low Osmolar Contrast (ICD-10-PCS; 2020-08-28)
PROC: 30233N1 Transfusion of Nonautologous Red Blood Cells into Peripheral Vein, Percutaneous Approach (ICD-10-PCS; 2020-09-02)
PROC: 0DJ08ZZ Inspection of Upper Intestinal Tract, Via Natural or Artificial Opening Endoscopic (ICD-10-PCS; 2020-09-05)
PROC: 0JBD0ZZ Excision of Right Upper Arm Subcutaneous Tissue and Fascia, Open Approach (ICD-10-PCS; 2020-09-07)
PROC: 0JBL0ZZ Excision of Right Upper Leg Subcutaneous Tissue and Fascia, Open Approach (ICD-10-PCS; principal; 2020-09-07 13:41)
DX: K29.71 Gastritis, unspecified, with bleeding (principal); G93.41 Metabolic encephalopathy; J18.9 Pneumonia, unspecified organism; N17.9 Acute kidney failure, unspecified; E44.1 Mild protein-calorie malnutrition; M62.82 Rhabdomyolysis; R64 Cachexia; E87.2 Acidosis; K26.4 Chronic or unspecified duodenal ulcer with hemorrhage; E86.9 Volume depletion, unspecified; E11.21 Type 2 diabetes mellitus with diabetic nephropathy; E86.0 Dehydration; Z20.822 Contact with and (suspected) exposure to COVID-19; R62.7 Adult failure to thrive; E11.42 Type 2 diabetes mellitus with diabetic polyneuropathy; H40.9 Unspecified glaucoma; E78.5 Hyperlipidemia, unspecified; E03.9 Hypothyroidism, unspecified; Z68.24 Body mass index [BMI] 24.0-24.9, adult; Z86.73 Personal history of transient ischemic attack (TIA), and cerebral infarction without residual deficits; L89.129 Pressure ulcer of left upper back, unspecified stage; L89.219 Pressure ulcer of right hip, unspecified stage; E11.22 Type 2 diabetes mellitus with diabetic chronic kidney disease; N18.9 Chronic kidney disease, unspecified
CPT/HCPCS: 36415; 43235; 51702; 70450; 70551; 71045; 72131; 80048; 80053; 81001; 82270; 82550; 82607; 82746; 83036; 83605; 83735; 84155; 84165; 84443; 84484; 85007; 85014; 85018; 85025; 85027; 85049; 85610; 85730; 86850; 86900; 86901; 86920; 87040; 87070; 87075; 87077; 87081; 87186; 87205; 87426; 93005; 93306; 93458; 93970; 95819; 96361; 96365; 96375; 97110; 97116; 97530; 99152; A4565; G0378; J0690; J0696; J1885; J2250; J2543; J2704